=== PATIENT | female | born 1935 | race Caucasian/White ===

== ENCOUNTER → 2016-09-03 | Outpatient (CLI) | payer MEDICARE, BC ==
[~2016-09-03] MED LIST: AMITRIPTYLINE H25 MG PO; ASPIRIN81 M1 PO; CLEOCIN HCL300 M1 PO; ICAPS MV TAB1 TAB.EC PO; MULTI-VITAMIN1 TAB PO; OSTEO-BIFLEX; PROTONIX PO; VIT E PO; VITAMIN C100 MG PO; VITAMIN D400 UNI2 PO; ZESTORETIC 20/21 TAB PO
--- NOTE | ~2016-09-03 | CR63 ---
[facility] A Service of [facility] RADIOLOGY TEXT RESULTS PATIENT: TIFFANIE CARVALHO [id number] 33 UNIT #: [id number] AGE: [address]: Maci Chisholm MD SEX: F ORDER DR: [id number] [facility] [address] [facility]. [place], [place] [address] [id number] O MR#: [id number] Acc #: [id number] NAME: TIFFANIE CARVALHO : 1935 SEX: F STUDY DATE/TIME: 09/03/2016 16:18 UNIT: [facility] ROOM: STUDY DESCRIPTION: CR Chest 2 View Attending Physician: Maci Chisholm M.D. Referring Physician: Maci Chisholm M.D. Ordering Physician: Maci Chisholm M.D. Primary Care Physician: Maci Chisholm M.D. MEDICAL IMAGING REPORT This report is preliminary unless electronic signature is present EXAM Chest x-ray, 09/03/2016. INDICATION Preoperative exam for foot surgery. History of hypertension. The patient does report some cough, worsening over two years. TECHNIQUE Two views of the chest were obtained. COMPARISON No comparison. FINDINGS There is some mild atelectasis or scarring in the bases. The lungs are otherwise clear except for granulomas, calcifications. Cardiac and mediastinal contours are normal. There is on pneumothorax. There is some atherosclerotic disease in the aorta. IMPRESSION Mild atelectasis or scarring in the bases. Otherwise, no active disease. Dictated by... Timur Harrison Jr., M.D. THIS IS AN ELECTRONICALLY VERIFIED REPORT Timur Harrison Jr., M.D. at 09/04/2016 3:45 PM RLK/jaime TD: 09/04/2016 13:40 JOB #: [id number] [facility] A Service of [facility] RADIOLOGY TEXT RESULTS PATIENT: TIFFANIE CARVALHO LOCATION: [facility] : 33 UNIT #: [id number] AGE: [address]: Maci Chisholm MD SEX: F ORDER DR: MEDICAL IMAGING REPORT Page 1 of 1 COPY
== END | disposition home or self-care (01) ==
LOC: CRAD 15:50
DX: Z01.818 Encounter for other preprocedural examination (principal); R05 Cough; I10 Essential (primary) hypertension; T50.905A Adverse effect of unspecified drugs, medicaments and biological substances, initial encounter; J98.4 Other disorders of lung
CPT/HCPCS: 71020